=== PATIENT | male | born 1990 | race Caucasian/White ===

== ENCOUNTER 2017-01-10 10:06 | Emergency (ER) | payer SELFPAY | END 2017-01-10 12:14 | disposition home or self-care (01) | LOC: ER 10:06 | DX: S02.2XXA Fracture of nasal bones, initial encounter for closed fracture (principal); S16.1XXA Strain of muscle, fascia and tendon at neck level, initial encounter; S05.11XA Contusion of eyeball and orbital tissues, right eye, initial encounter; S00.81XA Abrasion of other part of head, initial encounter; F17.220 Nicotine dependence, chewing tobacco, uncomplicated; Z23 Encounter for immunization; W10.9XXA Fall (on) (from) unspecified stairs and steps, initial encounter | CPT/HCPCS: 90471 ==